=== PATIENT | male | born 1985 | race Caucasian/White ===

== ENCOUNTER 2019-11-02 21:22 | Inpatient (IN) | payer SELFPAY ==
[~2019-11-02] VITALS: Ht 175.3 cm; Wt 81.6 kg
[2019-11-02 21:29] VITALS: BP 151/93
[2019-11-02] MEDS ORDERED: ONDANSETRON 4 MG ODT PO ONE (21:40)
[2019-11-02] MEDS ORDERED: MORPHINE SULFATE 4 MG/ML SYR IM ONE (21:40)
[2019-11-02 21:55] LABS: APPEARANCE,URINE CLEAR (CLEAR); BILIRUBIN,URINE NEGATIVE (NEGATIVE); BLOOD, URINE NEGATIVE (NEGATIVE); COLOR,URINE YELLOW (YELLOW); LEUKOCYTE ESTERASE ,URINE NEGATIVE (NEGATIVE); NITRITE, URINE NEGATIVE (NEGATIVE); UGLUCOSE NEGATIVE (NEGATIVE)
[2019-11-02] MEDS ORDERED: MORPHINE SULFATE 4 MG/ML SYR IVP ONE ×3 (22:05→23:40)
[2019-11-03] MEDS ORDERED: diphenhydrAMINE 50 MG/ML VIAL IVP ONE
[2019-11-03] MEDS ORDERED: diphenhydrAMINE 50 MG/ML VIAL ONE (00:01)
[2019-11-03 00:03] LABS: BASOPHILS # (AUTO) 0.1 K/uL (0.00-0.22); BASOPHILS % (AUTO) 0.7 % (0.0-2.0); EOSINOPHILS # (AUTO) 0.1 K/uL (0-0.4); EOSINOPHILS % (AUTO) 0.9 % (0.0-4.0); HEMATOCRIT 38.2 % (36-52); HEMOGLOBIN 12.8 g/dL (12.0-18.0); LYMPHOCYTES # (AUTO) 1.9 K/uL (2.0-11.5); LYMPHOCYTES % (AUTO) 24.8 % (20.5-51.1); MEAN CORPUSCULAR HEMOGLOBIN 26 pg (27-31); MEAN CORPUSCULAR HGB CONC 34 g/dL (33-37); MEAN CORPUSCULAR VOLUME 78.2 fL (80-94); MONOCYTES # (AUTO) 0.8 K/uL (0.8-1.0); MONOCYTES % (AUTO) 10.1 % (1.7-9.3); NEUTROPHILS # (AUTO) 4.9 K/uL (1.8-7.7); NEUTROPHILS % (AUTO) 63.5 % (42.2-75.2); PLATELET COUNT (AUTO) 321 K/uL (140-450); RED BLOOD CELL COUNT(AUTO) 4.88 MIL/uL (4.20-6.10); RED CELL DISTRIBUTION WIDTH 16.5 % (11.6-13.7); WHITE BLOOD COUNT (AUTO) 7.7 K/uL (4.8-10.8)
[2019-11-03] MEDS ORDERED: HYDROmorphone PFS 2 MG/ML SYR ONE (00:06)
[2019-11-03] MEDS: HYDROmorphone PFS 2 MG/ML SYR IVP PRN ×3 (00:14→06:36)
[2019-11-03 00:24] LABS: ALBUMIN 3.8 g/dL (3.4-5.0); CREATININE 1.1 mg/dL (0.6-1.3); TOTAL BILIRUBIN 0.2 mg/dL (0.0-1.0)
[2019-11-03 00:28] LABS: PROTHROMBIN TIME 10.2 secs (10.8-13.4)
[2019-11-03] MEDS ORDERED: ACETAMINOPHEN 325 MG TAB PO PRN (00:35)
[2019-11-03] MEDS ORDERED: DOCUSATE SODIUM 100 MG GELCAP PO PRN (00:35)
[2019-11-03] MEDS ORDERED: ONDANSETRON 4 MG/2 ML VIAL IM/IVP PRN (00:35)
[2019-11-03] MEDS ORDERED: NACL 0.9% 1,000 ML IV SCH (00:35)
[2019-11-03] MEDS ORDERED: PROMETHAZINE 25 MG TAB PO PRN ×3 (00:55→01:20)
[2019-11-03 01:32] LABS: CHOL/HDL RATIO 6.8 (1-4.5); FREE T4 (FREE THYROXINE) 1.14 ng/dL (0.76-1.46); MAGNESIUM 1.8 mg/dL (1.8-2.4); PHOSPHORUS 3.7 mg/dL (2.5-4.9); THYROID STIMULATING HORMONE 8.92 uIU/mL (0.34-3.74)
[2019-11-03] MEDS: HYDROcodone/APAP 10/325 MG 1 TAB TAB PO SCH ×2 (02:01)
[2019-11-03] MEDS: DEXT 5% / NACL 0.9% 500 ML IV SCH ×2 (03:36→09:45)
[2019-11-03 04:00] VITALS: BP 118/71
[2019-11-03 08:00] VITALS: BP 122/83
[2019-11-03] MEDS ORDERED: LIDOCAINE MPF 1% 5 ML ONE (08:35)
[2019-11-03] MEDS ORDERED: LIDOCAINE MPF 1% 10 MG/ML VIAL INJ SCH (09:00)
[2019-11-03] MEDS ORDERED: TRAM50TA3 PO (09:50)
[2019-11-03] MEDS ORDERED: IBUP-2213 PO (10:27)
[2019-11-03] MEDS ORDERED: ATORVASTATIN 20 MG TAB PO SCH (21:00)
== END 2019-11-03 11:41 | disposition home or self-care (01) | DRG 730 ==
LOC: MED 21:22 → MTU 23:47
PROVIDERS: ADMIT General Practice; ATTEND General Practice
DX: N44.00 Torsion of testis, unspecified (principal); R11.0 Nausea; E78.5 Hyperlipidemia, unspecified; E02 Subclinical iodine-deficiency hypothyroidism; N50.89 Other specified disorders of the male genital organs; Z87.442 Personal history of urinary calculi; Z71.6 Tobacco abuse counseling; Z87.891 Personal history of nicotine dependence
CPT/HCPCS: 36415; 71045; 76870; 80053; 81003; 82140; 82150; 83036; 83605; 83690; 83735; 83880; 84100; 84439; 84443; 84484; 85025; 85610; 85730; 96372; 96374; 96375; 96376; 99285; J1170; J1200; J2001; J2270; J2405; J7042; Q0092; Q0162; Q0169